=== PATIENT | male | born 1955 | race Caucasian/White ===

== ENCOUNTER 2022-03-10 10:30 | Emergency (ER) | payer OTHER, SELFPAY ==
[2022-03-10 10:31] VITALS: BP 176/105; PULSE 114; RESP 18; TEMP 35.5; O2SAT 97; BMI 27.2
--- NOTE | 2022-03-10 10:52 | EDS_ITS ---
HPI History of Present Illness Chief Complaint: Trauma Informant: patient Occured/Mechanism Comment: Jigsaw while cutting wood Onset/Context/Timing Onset: Today (Just prior to arrival) Context: Sudden Onset Timing: Continuous Quality of Pain: - (Sore) Location: Left ring and long fingers Current Severity: Moderate Maximum Severity: Moderate Worsened by: palpation, using finger Relieved by: remaining still Associated Symptoms Associated Symptoms: Negative for Parasthesia, Weakness or Loss of Funtion Narrative Narrative: Patient states he was using a jigsaw and accidentally injured his left hand. He is right-hand dominant. He is on aspirin no anticoagulants or other antiplatelets. No other injuries. He was cutting wood. Last tetanus unknown. Tetanus Immunization: Unknown [facility] Medical History (Updated 03/10/22 @ 12:[address] Fabio Lord MD) Hyperlipidemia Hypertension Stroke/cerebrovascular accident Home Medications cefadroxil 500 mg capsule 500 mg PO TID #21 caps 03/10/22 [Rx Last Taken Unknown] hydrocodone-acetaminophen 5-325mg 5mg-325mg 1 tab PO Q6H PRN PRN Pain 3 days #10 TABLETS 03/10/22 [Rx Last Taken Unknown] Allergy/AdvReac Type Severity Reaction Status Date / Time No Known Allergies Allergy Verified 03/10/22 10:31 Surgical History (Updated 03/10/22 @ 10:51 by Megan Mc) History of tonsillectomy Social History Smoking Status: Never smoker ROS ROS ED Constitutional Constitutional ED: Denies chills or fever(s) Musculoskeletal Musculoskeletal: Reports extremity pain; Denies neck pain Integumentary Reports wounds; Denies Abrasions or rash Neurologic Neurologic: Denies paresthesias or weakness EXAM Physical Exam Const Vital Signs: 03/10/22 10:31 Temperature 96 F L Temperature Source Temporal Pulse Rate 114 H Respiratory Rate 18 Blood Pressure 176/105 H Blood Pressure Mean 128 Pulse Ox 97 Oxygen Delivery Method Room Air Positive well nourished and well developed General Appearance ED: well developed and NAD Neck full ROM and supple Back/Spine normal ROM and normal to inspection Extremity Extremity Narrative: Injury to the left middle and ring fingers. The long fingertip is completely avulsed, the nail is completely avulsed. The level of the amputation is about the middle of the nailbed. There is no bone exposed. There is arteriolar bleeding that is easily controlled with pressure. The nail is gone, and the fingertip tissue is not with the patient. FDS FDP and extensor function intact. With regards to the ring finger, there is a laceration at the ulnar aspect that is 3.5 cm long, progressing from the lateral aspect all the way around the ventral aspect, there is a loose deformity suspicious for fracture of the distal phalanx, the FDP is intact. The nail is not injured and there is no subungual hematoma or avulsion of the nail. There is no significant soft tissue loss here. The other fingers are not injured. Neuro oriented x3, no focal motor deficits and no sensory deficits noted Sensorium / Orientation: alert Psych mental status grossly normal and thought process normal Skin Skin Narrative: See above for wound information regarding the left middle and ring fingers. No other injuries or wounds. Rashes: no rashes MDM MDM MDM Narrative Medical decision making narrative: X-ray 3 views left hand show bony involvement of the distal phalanx of fingers 3 and 4. Finger for is an oblique fracture, which I was able to detect clinically on his ring finger, the other appears to be a clean fingertip amputation involving the bone as well. Clinically there is no bone visible/exposed. With pressure dressing, we were able to eventually get the bleeding to stop on the long finger, nurses will dress it with a piece of Surgicel and a bulky dressing. The other finger was splinted after it was repaired see the procedure note. I discussed with Dr. Sandoval locally, he recommends following up with a hand specialist so I will refer the patient to [facility]. Will be placed on Duricef and given analgesics. Procedures Lacerations Left ring finger: Length: 3.5 cm Depth: Sub Q Shape: Linear Prep: Chlorhexadine Laceration repair: Irrigated, Lidocaine with epi (1cc), Local and Skin sutures Irrigated (ml): 50 Number of Sutures/Olga Lidia: 8 Suture Information: Ethilon, Simple and 5-0 Comment: Irrigated under pressure, locally anesthetized successfully, and repaired. Tissue is macerated, subcutaneous tissue was herniating out of the wound due to swelling, this was reduced as best possible. Splinted with an aluminum finger splint. Upper Extremity Splints Upper Extremity Splint: Alumifoam (Fourth left finger) Splint Fabrication: Pre-fabricated Location: Left (Placed by nurse supervised by myself. Neurovascular intact distally after placement.) Discharge Plan Triage Chief Complaint: Trauma Other Complaint: Laceration Upper Extremity Injury ED Provider: Fabio Lord Dx/Rx/DC Orders Clinical Impression: Open nondisplaced fracture of distal phalanx of left ring finger, Open fracture of distal phalanx of left middle finger, Traumatic amputation of fingertip, Immunization, tetanus-diphtheria Instructions: ED Fracture, Finger, Open Prescriptions: New cefadroxil 500 mg capsule 500 mg PO TID Qty: 21 0RF hydrocodone-acetaminophen [hydrocodone-acetaminophen] 5-325 mg tablet 1 tab PO Q6H PRN PRN (Reason: Pain) 3 Days Qty: 10 0RF Primary Care Provider: Care Physician,No Primary Referrals: [facility] [Provider Group] - As soon as possible ( -- 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
--- NOTE | 2022-03-10 11:00 | RAD_ITS ---
STUDY: X-RAY - LEFT HAND REASON FOR EXAM: Male, 66 years old. Trauma -- attn middle, ring f''s TECHNIQUE: 3 view(s) of the hand. COMPARISON: None. FINDINGS: Normal radiocarpal articulation. Normal distal radioulnar joint. Normal visualized carpal bones. Normal carpal articulations Normal carpometacarpal articulation of the thumb. Normal second through fifth carpometacarpal joints. Normal metacarpi. Normal metacarpophalangeal joint of the thumb. Normal interphalangeal joint of the thumb. Normal proximal and distal phalanges of the thumb. Normal metacarpophalangeal joints of the second through fifth fingers. There is evidence of amputation of the distal portion of the distal phalanx. Comminuted fracture of the distal phalanx of the third digit. Soft tissue laceration overlying the distal third and fourth digits. RAD/Hand Min 3 Views IMPRESSION: Amputation of the distal aspect of the distal pharynx of the fourth digit as well as a comminuted fracture of the distal phalanx of the third digit. Overlying soft tissue laceration. Electronically Signed: Clarence Childs MD at 12:06 EDT ,
[2022-03-10] MEDS: Diphth,Pertuss(Acell),Tet Vac 0.5 ML Vial IM (12:47)
[2022-03-10] MEDS: HYDROcodone Bitartrate/Apap 5/325 Tablet PO (12:52)
[2022-03-10 14:14] VITALS: BP 145/89; PULSE 98; RESP 17
== END 2022-03-10 14:17 | disposition home or self-care (01) ==
PROVIDERS: Emergency Provider Emergency Medicine; Visit Provider Emergency Medicine
DX: S62.665B Nondisplaced fracture of distal phalanx of left ring finger, initial encounter for open fracture (principal); S68.123A Partial traumatic metacarpophalangeal amputation of left middle finger, initial encounter; S62.633B Displaced fracture of distal phalanx of left middle finger, initial encounter for open fracture; W31.2XXA Contact with powered woodworking and forming machines, initial encounter; Z23 Encounter for immunization; Z79.82 Long term (current) use of aspirin; Z79.899 Other long term (current) drug therapy; Z86.73 Personal history of transient ischemic attack (TIA), and cerebral infarction without residual deficits
CPT/HCPCS: 12002; 73130; 90715; 99284